=== PATIENT | male | born 1965 | race Two or more races ===

== ENCOUNTER 2024-05-01 18:42 | Emergency (ER) | payer MEDICAID ==
[~2024-05-01] VITALS: Ht 172.7 cm; Wt 77.3 kg
[~2024-05-01 18:42] MED LIST: AMLO-257 PO; FINA-27 PO; TAMS0.4C94 PO
[2024-05-01 18:49] VITALS: TEMP 97.9
[2024-05-01] MEDS ORDERED: FINA-27 PO (20:57)
[2024-05-01] MEDS ORDERED: AMLO-257 PO (20:57)
[2024-05-01] MEDS ORDERED: TAMS0.4C94 PO (20:57)
[2024-05-01 21:02] VITALS: BP 140/85; PULSE 62; RESP 18; O2SAT 99
== END 2024-05-01 21:15 | disposition home or self-care (01) ==
LOC: EMS 18:42
DX: Z76.0 Encounter for issue of repeat prescription (principal); I10 Essential (primary) hypertension; F17.210 Nicotine dependence, cigarettes, uncomplicated; N40.0 Benign prostatic hyperplasia without lower urinary tract symptoms
CPT/HCPCS: 99281; Z7502